=== PATIENT | male | born 1935 | race Caucasian/White ===

== ENCOUNTER 2016-08-04 04:10 | Inpatient (IN) | payer OTHER, SELFPAY ==
[2016-07-30 10:44] LABS: HEMATOCRIT 33.8 % (40.0-51.0); HEMOGLOBIN 11.1 g/dL (13.6-17.8)
[2016-07-30 10:56] LABS: BUN (BLOOD UREA NITROGEN) 13 MG/DL (6-23); CALCIUM, SERUM 8.3 MG/DL (8.5-10.4); CHLORIDE, SERUM 103 MMOL/L (96-112); CO2 (CARBON DIOXIDE) 29 MMOL/L (24-34); CREATININE 0.89 MG/DL (0.70-1.30); GFR AFRICAN AMERICAN 95 ML/MIN (>=60); GFR NON AFRICAN AMERICAN 82 ML/MIN (>=60); GLUCOSE, SERUM 103 MG/DL (60-99); POTASSIUM, SERUM 3.7 MMOL/L (3.5-5.3); SODIUM, SERUM 141 MMOL/L (135-148)
--- NOTE | ~2016-08-04 | DS ---
Discharge Summary [facility] [address] [place]. [address] NAME: AMY WOLF : 39 STATUS : DIS IN PAT#: [id number] AGE: 80 ADM/REG DATE : 08/04/16 MR#: [id number] REPORT SERV DATE: 08/18/16 DICTATED BY: VISHAL MCMANUS DATE: 08/17/16 REPORT STATUS : Draft TRANSCRIBED BY: CARMEN DATE: 08/17/16 Data Collection from hospitalization DISCHARGE DIAGNOSES: 1. Colovesicular fistula. 2. Hypertension. 3. History of prostate cancer. 4. Mixed hyperlipidemia. 5. Coronary artery disease. 6. Diverticulosis. 7. History of myocardial infarction. CONSULTATIONS: None. PROCEDURES PERFORMED: Laparoscopic converted to open low anterior resection with ileostomy, 08/04/2016. PATHOLOGY: Sigmoid colon resected portion-diverticulosis with acute and chronic diverticulitis with peridiverticular abscess and fistula formation (history of external beam radiation for prostate cancer). Diverticulitis extends to proximal margin. Colon, anastomotic rings x2-colonic tissue within normal limits. MEDICATIONS: Aspirin 162 mg every day at bedtime, Lipitor 10 mg at bedtime, diltiazem XR 240 mg daily, Cardura 4 mg every day at bedtime, Proscar 5 mg every day at bedtime, Hyzaar one tablet every morning, Toprol-XL 50 mg every morning, Prilosec 20 mg every morning, Percocet 5/325 one tablet every four hours as needed, Klor-Con 10 mEq at bedtime, Flomax 0.4 mg every day at bedtime, vitamin B every morning as instructed, vision formula one tablet at bedtime. CONDITION AT DISCHARGE: Stable. DISPOSITION: The patient was discharged home on a soft diet with activities as instructed. He would follow up with me two weeks following discharge. HOSPITAL COURSE: This is a 80-year-old man who developed symptomatic colovesicular fistula. He has a history of prostate cancer that was treated with external beam radiation. Treatment options were discussed and it was elected to proceed with surgical intervention. He was admitted to the hospital at this time for further evaluation and treatment. Upon admission, he was taken to the operating room, where he underwent the above-mentioned procedure. He tolerated this well. There were no complications. On postop day #1, his pain was controlled. He was tolerating a full liquid diet. He had ostomy output. The Silva catheter was in place. IV fluids were continued. On 08/06/2016, he said he felt well. He was tolerating oral intake. Silva catheter remained in place. Ostomy training continued. The next day, discharge planning was performed. The Silva catheter was discontinued. His pain was controlled. We encouraged him to ambulate. On 08/08/2016, the ostomy was working. The Silva catheter had been removed and then replaced. His abdomen was soft. Silva catheter was going to remain in place for one week. Discharge instructions were given. Due to his improved and stable condition, he was discharged home with the above Discharge Summary [address] [place]. [address] NAME: AMY WOLF : 39 STATUS : DIS IN PAT#: [id number] AGE: 80 ADM/REG DATE : 08/04/16 MR#: [id number] REPORT SERV DATE: 08/18/16 DICTATED BY: VISHAL MCMANUS DATE: 08/17/16 REPORT STATUS : Draft TRANSCRIBED BY: CARMEN DATE: 08/17/16 stated instructions. Information collected by: Kaleigh Zayas I submit the above information as my discharge summary. TG/CARMEN Vishal Mcmnaus M.D. / [id number] CC: Myla Dela Cruz M.D.
--- NOTE | ~2016-08-04 | OP ---
Record Of Operation [facility] [address] [place]. [address] NAME: AMY WOLF : 39 STATUS : ADM IN PAT#: [id number] AGE: 80 ADM/REG DATE : 08/04/16 MR#: [id number] REPORT SERV DATE: 08/05/16 DICTATED BY: VISHAL MCMANUS DATE: 08/05/16 REPORT STATUS : Draft TRANSCRIBED BY: MODL DATE: 08/05/16 DATE OF PROCEDURE: 08/04/2016 PREOPERATIVE DIAGNOSIS: Colovesicular fistula. POSTOPERATIVE DIAGNOSIS: Colovesicular fistula. OPERATION PERFORMED: Laparoscopic converted to open low anterior resection with ileostomy. SURGEON: Vishal Mcmanus M.D. ANESTHESIA: General. ESTIMATED BLOOD LOSS: Less than 50 mL. IV FLUIDS: Adequate. INDICATION FOR PROCEDURE: Mr. Wolf is a 80-year-old, who developed a quite symptomatic colovesicular fistula. He has a history of prostate cancer treated with external beam radiation. After full risks and benefits, the patient has opted to proceed with sigmoidectomy. Risks and benefits were discussed including the risk of ostomy, ureteral injury, as well as bladder injury. INTRAOPERATIVE FINDINGS: Severe fibrosis and inflammation, secondary to colovesicular fistula. Our anastomosis was approximately 5 cm above the anal verge. Therefore, decided to perform an ileostomy, due to the patient's history of radiation. DESCRIPTION OF OPERATION: After appropriate sedation, the patient was prepped and draped in proper sterile fashion. A 10-mm Optiview trocar was used to enter the abdomen. The abdomen was insufflated to 15 mmHg. Visualized there was significant amount of inflammation which appeared to be chronic in the lower abdomen. We placed a 5 mm right upper quadrant trocar and a lower midline 5 mm trocar. We attempted to dissect this tissue away and did not feel like we could do this safely. We therefore decided to convert this to an open procedure. A lower midline incision was performed. Bookwalter retractor was then placed. We then using finger fracture, as well as sharp dissection, dissected the sigmoid colon off the dome of the bladder. This was all extremely difficult, due to the amount of inflammation, and amount of foreshortening of the mesentery. Once this was mobilized adequately, we then visualized down to the rectum. The softest area of the rectum appeared to be about 7 cm from the anal verge. We did place a Sizer up in this area, and we were able to easily pass a Sizer into the rectum. The tissue did appear to be viable. We then transected the sigmoid colon proximal to the inflammatory reaction. This was done using a 75 RONDA stapler. We then took down the mesentery using the Harmonic scalpel. We did not fully visualize the ureter, but stayed well medial to them. This was continued down to the proximal rectum that was soft. We then transected the rectum using a Contour stapler. The specimen was then passed off after placing the suture in the distal end. The patient has had a previous colonoscopy, so, we did not ask pathology to evaluate. We then irrigated out the abdomen. Record Of Operation [facility] [address] [facility] [place]. [address] NAME: AMY WOLF : 39 STATUS : ADM IN PAT#: [id number] AGE: 80 ADM/REG DATE : 08/04/16 MR#: [id number] REPORT SERV DATE: 08/05/16 DICTATED BY: VISHAL MCMANUS DATE: 08/05/16 REPORT STATUS : Draft TRANSCRIBED BY: CARMEN DATE: 08/05/16 Any bleeding was controlled with cautery or suture ligature. We then stapled off the end proximally. An automatic Pursestringer was fired and then we cut the staple line. A 29 EEA stapler anvil was placed into the colon and tied. We then placed the stapler through the rectum and deployed the spike just anterior to our staple line. The anvil was secured to the spike and retracted and then the stapler was fired. We were not able to fully visualize our anastomosis, because it was quite low. We suction irrigated until clear and then placed clear saline in. We insufflated the rectum and proximal colon multiple times. There was no evidence of leak. However, due to the patient's history of significant inflammation as well as a history of radiation, we decided to perform a protective diverting loop ileostomy. A circular area of skin to the right side of the umbilicus was excised. We incised the tissues down to the anterior rectus fascia and the posterior rectus fascia in a cruciate fashion. A piece of ilium approximately 20 cm from the ileocecal valve was brought through the abdominal wall with the proximal portion being superior. We made a transverse incision in the anti mesenteric border. At this point, a bar was placed underneath the ilium below the mesentery. We then evaluated the abdomen. The omentum was then brought from the upper abdomen down to the pelvis and laid nicely in the pelvis without any tension. We then at this point, closed the fascia using a running #1 looped PDS suture. The skin was closed using 3-0 Vicryl and fred. We then matured the ileostomy in a Belkis fashion by making a transverse incision. 3-0 Vicryl was used to Belkis it. Dressings were then placed. The patient was taken to the recovery room in satisfactory condition. PAUL/CARMEN Vishal Mcmanus M.D. / [id number] CC: Myla Dela Cruz M.D.
[~2016-08-04 04:10] MED LIST: ASAB PO; CARDU4 PO; DILT-XR240 MG PO; FLOMAX4 PO; HYZAAR1 TAB PO; KLOR-CON 1010 MEQ PO; LIPITOR10 PO; LUTEIN1 CAP PO; PRILO PO; PROSCAR5 PO; TOPXL50 PO; VISION FORMULA PO; VITAMIN B COMPLEX PO
[2016-08-05 06:55] LABS: BASOPHILS 0 %; EOSINOPHILS 0 %; HEMOGLOBIN 10.1 g/dL (13.6-17.8); IMMATURE GRANULOCYTES 0.2 %; IMMATURE GRANULOCYTES ABSOLUTE 0.02 10/3/uL (0.0-0.11); LYMPHOCYTES 5.7 %; LYMPHOCYTES ABSOLUTE 0.66 10/3/uL (0.67-4.30); MEAN CORPUSCULAR HEMOGLOB 30.3 pg (26.0-34.0); MEAN CORPUSCULAR VOLUME 89.2 fL (80-100); MEAN PLATELET VOLUME 9.1 fL (9.2-13.0); MONOCYTES 8.8 %; MONOCYTES ABSOLUTE 1.03 10/3/uL (0.21-1.20); NEUTROPHILS 85.3 %; NEUTROPHILS ABSOLUTE 9.95 10/3/uL (2.02-8.40); PLATELET COUNT 182 10/3/uL (150-400); RBC DISTRIBUTION WIDTH 12.6 % (12.0-16.0); RED CELL COUNT 3.33 10/6/uL (4.7-6.1); WHITE BLOOD CELLS 11.7 10/3/uL (4.5-10.5)
[2016-08-05 06:58] LABS: HEMATOCRIT 29.7 % (40.0-51.0); MANUAL DIFF NO %
[2016-08-05 07:37] LABS: BUN (BLOOD UREA NITROGEN) 13 MG/DL (6-23); CALCIUM, SERUM 8.1 MG/DL (8.5-10.4); CHLORIDE, SERUM 105 MMOL/L (96-112); CO2 (CARBON DIOXIDE) 30 MMOL/L (24-34); CREATININE 0.98 MG/DL (0.70-1.30); GFR AFRICAN AMERICAN 85 ML/MIN (>=60); GFR NON AFRICAN AMERICAN 74 ML/MIN (>=60); POTASSIUM, SERUM 3.8 MMOL/L (3.5-5.3); SODIUM, SERUM 141 MMOL/L (135-148)
[2016-08-05 07:38] LABS: GLUCOSE, SERUM 193 MG/DL (60-99)
[2016-08-07 07:31] LABS: BASOPHILS 0.1 %; BASOPHILS ABSOLUTE 0.01 10/3/uL (0.0-0.16); EOSINOPHILS 2.2 %; HEMATOCRIT 29.9 % (40.0-51.0); HEMOGLOBIN 9.7 g/dL (13.6-17.8); IMMATURE GRANULOCYTES 0.2 %; IMMATURE GRANULOCYTES ABSOLUTE 0.02 10/3/uL (0.0-0.11); LYMPHOCYTES 13.8 %; LYMPHOCYTES ABSOLUTE 1.28 10/3/uL (0.67-4.30); MEAN CORPUS HGB CONC 32.4 g/dL (32.0-36.0); MEAN CORPUSCULAR HEMOGLOB 29.5 pg (26.0-34.0); MEAN CORPUSCULAR VOLUME 90.9 fL (80-100); MEAN PLATELET VOLUME 9.6 fL (9.2-13.0); MONOCYTES 9.2 %; MONOCYTES ABSOLUTE 0.85 10/3/uL (0.21-1.20); NEUTROPHILS 74.5 %; NEUTROPHILS ABSOLUTE 6.89 10/3/uL (2.02-8.40); PLATELET COUNT 221 10/3/uL (150-400); RBC DISTRIBUTION WIDTH 13.2 % (12.0-16.0); RED CELL COUNT 3.29 10/6/uL (4.7-6.1); WHITE BLOOD CELLS 9.3 10/3/uL (4.5-10.5)
[2016-08-07 07:37] LABS: MANUAL DIFF NO %
[2016-08-07 07:40] LABS: BUN (BLOOD UREA NITROGEN) 10 MG/DL (6-23); CALCIUM, SERUM 8.2 MG/DL (8.5-10.4); CHLORIDE, SERUM 105 MMOL/L (96-112); CO2 (CARBON DIOXIDE) 30 MMOL/L (24-34); CREATININE 0.74 MG/DL (0.70-1.30); GFR AFRICAN AMERICAN 102 ML/MIN (>=60); GFR NON AFRICAN AMERICAN 88 ML/MIN (>=60); GLUCOSE, SERUM 96 MG/DL (60-99); POTASSIUM, SERUM 3.9 MMOL/L (3.5-5.3); SODIUM, SERUM 142 MMOL/L (135-148)
[2016-08-08] MEDS ORDERED: PCET PO (09:25)
== END 2016-08-08 13:52 | disposition home or self-care (01) | DRG 330 ==
LOC: SDC/OF 04:10 → PACU 09:30 → 5SO 12:00
PROVIDERS: Specialist
PROC: 0DBP0ZZ Excision of Rectum, Open Approach (ICD-10-PCS; 2016-08-04)
PROC: 0D1B0Z4 Bypass Ileum to Cutaneous, Open Approach (ICD-10-PCS; 2016-08-04)
PROC: 0DBN0ZZ Excision of Sigmoid Colon, Open Approach (ICD-10-PCS; principal; 2016-08-04 05:45)
DX: K63.2 Fistula of intestine (principal); K57.32 Diverticulitis of large intestine without perforation or abscess without bleeding; I10 Essential (primary) hypertension; N32.1 Vesicointestinal fistula; I25.2 Old myocardial infarction; I25.10 Atherosclerotic heart disease of native coronary artery without angina pectoris; Z95.1 Presence of aortocoronary bypass graft; Z85.46 Personal history of malignant neoplasm of prostate; Z92.3 Personal history of irradiation; Z79.82 Long term (current) use of aspirin
CPT/HCPCS: 80048; 85014; 85018; 85025; 88307; 93005; A9270-GY; J0690; J2250; J2405; J2710; J2795; J3010

== ENCOUNTER 2016-10-07 06:17 | Inpatient (IN) | payer OTHER ==
[2016-10-05 09:44] LABS: HEMATOCRIT 29.5 % (40.0-51.0); HEMOGLOBIN 10.1 g/dL (13.6-17.8)
[2016-10-05 09:56] LABS: BUN (BLOOD UREA NITROGEN) 28 MG/DL (6-23); CALCIUM, SERUM 8.8 MG/DL (8.5-10.4); CHLORIDE, SERUM 110 MMOL/L (96-112); CO2 (CARBON DIOXIDE) 26 MMOL/L (24-34); CREATININE 1.44 MG/DL (0.70-1.30); GFR AFRICAN AMERICAN 53 ML/MIN (>=60); GFR NON AFRICAN AMERICAN 46 ML/MIN (>=60); GLUCOSE, SERUM 99 MG/DL (60-99); POTASSIUM, SERUM 3.7 MMOL/L (3.5-5.3); SODIUM, SERUM 143 MMOL/L (135-148)
--- NOTE | ~2016-10-07 | OP ---
Record Of Operation [facility] [address] [place]. [address] NAME: AMY WOLF : 39 STATUS : DIS IN PAT#: [id number] AGE: 81 ADM/REG DATE : 10/07/16 MR#: [id number] REPORT SERV DATE: 10/11/16 DICTATED BY: VISHAL MCMANUS DATE: 10/11/16 REPORT STATUS : Draft TRANSCRIBED BY: ZANEL DATE: 10/11/16 DATE OF PROCEDURE: 10/07/2016 PREOPERATIVE DIAGNOSIS: Presence of ileostomy, desire for reversal. POSTOPERATIVE DIAGNOSIS: Presence of ileostomy, desire for reversal. OPERATION PERFORMED: Ileostomy reversal. SURGEON: Vishal Mcmanus M.D. ANESTHESIA: General. ESTIMATED BLOOD LOSS: Less than 10 mL. IV FLUIDS: Adequate. INDICATION FOR PROCEDURE: Mr. Wolf is a 81-year-old gentleman who had previously undergone a low anterior resection for colovesicular fistula with protective ileostomy. He was brought to the operating room today for an ileostomy reversal. DESCRIPTION OF OPERATION: After appropriate sedation, the patient was prepped and draped in appropriate sterile fashion. An elliptical incision was made around the ileostomy with a small portion of the skin. We dissected down to the fascia. The ileostomy itself was dissected off the fascia circumferentially and then posteriorly. This gave us a large amount of ilium into the wound. We then dissected the scar tissue into the ileostomy. It was fully mobilized. We placed a 75 RONDA stapler down both lumens of the ileostomy and this was fired to create a common enterotomy. We closed the butt end of the common enterotomy using a TA 60 stapler. This gave us a widely patent anastomosis that was intact. We imbricated the anterior staple line using 3-0 silk sutures. We then irrigated. We palpated the anastomosis which was patent. This was then delivered into the wound. We then closed the fascia in 2 layers using interrupted 0 PDS suture. We closed the anterior rectus and 0 PDS loop suture. The wound was copiously irrigated. We then closed the skin using interrupted 3-0 nylon loosely with Telfa peyton. Dressings were applied. The patient was taken to the recovery room in satisfactory condition. PAUL/CARMEN Vishal Mcmanus M.D. / [id number] CC: Record Of Operation [address] [place]. [address] NAME: AMY WOLF : 39 STATUS : DIS IN PAT#: [id number] AGE: 81 ADM/REG DATE : 10/07/16 MR#: [id number] REPORT SERV DATE: 10/11/16 DICTATED BY: VISHAL MCMANUS DATE: 10/11/16 REPORT STATUS : Draft TRANSCRIBED BY: MODL DATE: 10/11/16 Myla Dela Cruz M.D.
[~2016-10-07 06:17] MED LIST changes: +PCET PO
[2016-10-09 12:47] LABS: BASOPHILS 0 %; EOSINOPHILS 0.1 %; EOSINOPHILS ABSOLUTE 0.01 10/3/uL (0.0-0.53); HEMATOCRIT 27.8 % (40.0-51.0); HEMOGLOBIN 9.6 g/dL (13.6-17.8); IMMATURE GRANULOCYTES 0.2 %; IMMATURE GRANULOCYTES ABSOLUTE 0.02 10/3/uL (0.0-0.11); LYMPHOCYTES 7.7 %; LYMPHOCYTES ABSOLUTE 0.65 10/3/uL (0.67-4.30); MEAN CORPUSCULAR HEMOGLOB 30.6 pg (26.0-34.0); MEAN CORPUSCULAR VOLUME 88.5 fL (80-100); MEAN PLATELET VOLUME 9.1 fL (9.2-13.0); MONOCYTES 7.1 %; NEUTROPHILS 84.9 %; NEUTROPHILS ABSOLUTE 7.15 10/3/uL (2.02-8.40); PLATELET COUNT 173 10/3/uL (150-400); RED CELL COUNT 3.14 10/6/uL (4.7-6.1); WHITE BLOOD CELLS 8.4 10/3/uL (4.5-10.5)
[2016-10-09 12:54] LABS: MANUAL DIFF NO %; MEAN CORPUS HGB CONC 34.5 g/dL (32.0-36.0); RBC DISTRIBUTION WIDTH 16.8 % (12.0-16.0)
[2016-10-09 12:59] LABS: BUN (BLOOD UREA NITROGEN) 28 MG/DL (6-23); CALCIUM, SERUM 7.9 MG/DL (8.5-10.4); CHLORIDE, SERUM 110 MMOL/L (96-112); CO2 (CARBON DIOXIDE) 26 MMOL/L (24-34); CREATININE 1.28 MG/DL (0.70-1.30); GFR AFRICAN AMERICAN 61 ML/MIN (>=60); GFR NON AFRICAN AMERICAN 53 ML/MIN (>=60); GLUCOSE, SERUM 89 MG/DL (60-99); POTASSIUM, SERUM 3.8 MMOL/L (3.5-5.3); SODIUM, SERUM 140 MMOL/L (135-148)
[2016-10-10] MEDS ORDERED: PCET PO (14:16)
== END 2016-10-10 16:27 | disposition home or self-care (01) | DRG 330 ==
LOC: SDC/OF 06:17 → PACU 10:11 → 5SO 13:54
PROVIDERS: Specialist
PROC: 0DQB0ZZ Repair Ileum, Open Approach (ICD-10-PCS; principal; 2016-10-07 08:45)
DX: Z43.2 Encounter for attention to ileostomy (principal); Q21.1 Atrial septal defect; I10 Essential (primary) hypertension; Z79.82 Long term (current) use of aspirin; Z85.46 Personal history of malignant neoplasm of prostate; Z95.1 Presence of aortocoronary bypass graft; I25.2 Old myocardial infarction
CPT/HCPCS: 80048; 85014; 85018; 85025; 93005; A9270-GY; C9113; J0690; J1170; J2250; J2405; J2710; J2795; J3010; P9045